=== PATIENT | male | born 1950 | race Caucasian/White ===

== ENCOUNTER 2018-04-10 07:41 | Day surgery (SDC) | payer BC, SELFPAY ==
--- NOTE | 2018-04-06 18:30 | PM.OP.1 ---
Procedure & Clinicians Procedure: Date of service: April 10, 2018 Preoperative diagnoses: 1. Nuclear sclerotic Cataract surgery left with toric intra-ocular lens implant for astigmatism Cataract. Postoperative diagnoses: 1. Cataract post cataract surgery left eye with toric intra-ocular lens. Procedure: Phacoemulsification with posterior chamber intraocular lens implant Surgeon: Cherie Marroquin MD Complications: None Specimen: None Implant: [id number] +18.0 [place] 164 Blood loss: None Anesthesia: Retrobulbar with monitored standby Anesthesiologist: Vinny Shanks M.D. Description of procedure: Patient is a 62 year old male with decreased vision due to cataract which is affecting activities of daily living. He wants surgery to improve vision. He has taken to the operating room and topical proparacaine drops were on the cornea. Indelible ink pang were placed at the 90 and 180 degree meridian. He is then given IV sedation. A retrobulbar block insert consisting of 6 cc of 2% xylocaine without epinephrine mixed half and half with 0.5% Marcaine with 1 cc of hyaluronidase added is placed between the medial and lateral 1/3 of the inferior orbital rim. Lid akinesia is obtain with 1% xylocaine with epinephrine infiltrated along the lid margin. The eye is manually massaged for 30 sec, prepped using Betadine solution, and draped in the usual sterile fashion. Temporal approach was made, a 1 mm side-port incision was made at the 12 meridian. Phenylephrine 1.5% mixed with 1% xylocaine 0.2 cc was placed into the anterior chamber. Viscoat followed by Healon was then placed. A 2.6 mm clear incision with a 2.6 mm blade was placed at the 180 meridian. Pupil was large and no Malygin ring was placed. The iris is at risk to floppy iris from symptomatic use. A 360 degree capsulorrhexis style capsulotomy was then performed with a cystitome needle on a Healon. Hydrodelineation and hydrodissection were performed. The phacoemulsification unit is introduced, and sculpting notice used to groove the central lens. Extra phenylephrine with lidocaine and Viscoat to the peripheral iris to prevent floppy iris syndrome.The nucleus is then removed in chopping mode. Epi nucleus is removed with epinuclear mode and irrigation aspiration was used to remove the peripheral cortex. The posterior capsule is polished. Indelible ink pang were placed at the 164 degree meridian. The intraocular lens is selected, inspected, power confirmed, and placed in the posterior chamber. Is aligned to the desired meridian lifted and viscoelastic removed from the backside of the intra-ocular lens. Viscoelastic was placed into the anterior chamber and the Malyugin ring removed from the iris and then retracted through the on folder. The pupil was constricted. The wound was stromally hydrated and tested for leaks, there was none and was left sutureless. Vigamox 0.1 cc was placed into the anterior chamber. Kenalog 0.2 cc was placed in the superior subconjunctival space. A drop of antibiotic and was placed and the eye was patched and shielded. The patient was stable and returned to the recovery room in excellent condition. Dictated by: Cherie Marroquin MD Copy to: [facility] Click Yes if Unassisted: Yes
--- NOTE | 2018-04-06 18:41 | PM.PREOP ---
Pre-operative Note Interval Note Pre-op Check: History & Physical Reviewed by Physician
--- NOTE | 2018-04-09 18:00 | PM.PREOP ---
Pre-operative Note Interval Note Pre-op Check: History & Physical Reviewed by Physician
[2018-04-10 08:30] VITALS: BP 118/74; PULSE 67; RESP 20; TEMP 36; O2SAT 98; BMI 28.1
[2018-04-10] MEDS: PROPARACAINE 0.5% OPHTH SOL 2 DROPS EYE-OP (08:45)
[2018-04-10] MEDS: CATARACT EYE COMPOUND (10 DROPS/SYRINGE) 3 DROPS EYE-OP (08:46)
--- NOTE | 2018-04-10 09:27 | SUR.OPER ---
Supine on eye stretcher, head on extension cradle secured with tape. Arms tucked at sides with blanket. Pillow under knees.
[2018-04-10] MEDS: BALANCED SALT IRRIG SOLN NO.2 15 ML IRRIG.SOLN IRR (09:39)
[2018-04-10] MEDS: CHONDROIDTIN/SOD HYALURONATE 1.05 ML SYRINGE INTRAOCULA (09:39)
[2018-04-10] MEDS: HYALURONATE SODIUM 10 MG/ML SYRINGE INJ (09:39)
[2018-04-10] MEDS: LIDOCAINE 1% W/EPI INJ 20 ML INJ (09:40)
[2018-04-10] MEDS: NEOMYCIN/POLY/DEX OPHTH OINT 1 APPLIC EYE-LEFT (09:40)
[2018-04-10] MEDS: MOXIFLOXACIN OPHTH DROPS 3 ML BOTTLE 2 DROPS INJ (09:40)
[2018-04-10] MEDS: PHENYLEPHRINE/LIDOCAINE 3ML VIAL (OR) EYE-OP (09:41)
[2018-04-10] MEDS: OFLOXACIN 0.3% OPHTH 5 ML 2 DROPS EYE-LEFT (09:41)
[2018-04-10] MEDS: TRIAMCINOLONE 50 MG/5 ML VIAL INJ (09:41)
[2018-04-10] MEDS: BALANCED SALT IRRIG SOLN NO.2 500 ML, EPINEPHrine 1 MG IRR (09:43)
[2018-04-10] MEDS: LIDOCAINE 2% 4 ML, BUPIVACAINE 0.5% (PF) 4 ML, HYALURONIDASE 150 UNIT INJ (09:43)
[2018-04-10 10:17] VITALS: BP 120/71; PULSE 59; RESP 18; TEMP 36.3; O2SAT 98
--- NOTE | 2018-04-10 15:04 | PM.PREOP ---
Pre-operative Note Interval Note Pre-op Check: History & Physical Reviewed by Physician
== END 2018-04-10 10:26 | disposition home or self-care (01) ==
PROVIDERS: Family Provider Family Medicine; Visit Provider Ophthalmology
DX: H25.12 Age-related nuclear cataract, left eye (principal); H52.202 Unspecified astigmatism, left eye; I10 Essential (primary) hypertension
CPT/HCPCS: J0171; J2704; J3301; J3470; V2787